=== PATIENT | female | born 1955 | race Caucasian/White ===

== ENCOUNTER → 2021-02-04 16:06 | Outpatient (CLI) | payer MEDICARE, OTHER, SELFPAY ==
--- NOTE | ~2021-02-04 | MM_ITS ---
EXAMINATION: MM screening mata BI w ed HISTORY: Screening TECHNIQUE: Craniocaudal and mediolateral oblique 3-D tomosynthesis images were obtained and synthetic 2-D images were generated. CAD analysis was submitted and interpreted. COMPARISON: Comparison to multiple prior studies sequentially, with oldest reviewed study dated 06/10. BREAST PARENCHYMAL COMPOSITION: Breast composed of scattered areas of fibroglandular density. FINDINGS: There are new asymmetries in the lower inner quadrant of the right breast. The left breast is stable without evidence for malignancy. IMPRESSION: 1. New right breast asymmetries. 2. Additional mammographic views and possible breast ultrasound are recommended. BI-RADS Category 0: Incomplete: Needs additional imaging evaluation. Reviewed, dictated and finalized at location A. IMPRESSION: 1. New right breast asymmetries. 2. Additional mammographic views and possible breast ultrasound are recommended . BI-RADS Category 0: Incomplete: Needs additional imaging evaluation.
== END ==
PROVIDERS: Visit Provider Internal Medicine
DX: Z12.31 Encounter for screening mammogram for malignant neoplasm of breast (principal); R92.8 Other abnormal and inconclusive findings on diagnostic imaging of breast
CPT/HCPCS: 77063; 77067

== ENCOUNTER → 2021-03-05 09:53 | Outpatient (CLI) | payer MEDICARE, OTHER, SELFPAY ==
--- NOTE | ~2021-03-05 | MMUS_ITS ---
EXAMINATION: MM diagnostic mammo unilat RT, US breast RT complete HISTORY: New right breast mammographic asymmetries reported on 02/04/2021 screening mammogram TECHNIQUE: Additional 3-D tomosynthesis images of the right breast were performed and synthetic 2-D i mages were generated. Rotated lateral craniocaudal view of right breast. CAD analysis was submitted a nd interpreted. High resolution complete right breast ultrasound was performed. COMPARISON: 02/04/2021 bilateral digital screening mammogram FINDINGS: MAMMOGRAPHIC FINDINGS: 4.5 mm irregular opacity in the upper outer right breast (ML Tomosynthesis image 14/56) Approximately 8.5 mm irregular mass is noted in the inner mid right breast (craniocaudal Tomosynthesi s image 23/51. Probable postsurgical scarring in the posterior upper outer right breast. ULTRASOUND: 4:00 3 cm from nipple: 3 x 3.8 mm irregular hypoechoic lesion with shadowing; this is suspicious, ult rasound-guided biopsy is recommended. 9:00 7 cm from nipple: 3.1 x 3.8 mm antiparallel irregular hypoechoic solid lesion; ultrasound-guided biopsy is recommended 10:00 6 cm from nipple: Irregular and typed parallel hypoechoic 4 x 5.5 x 4.5 mm mass with posterior shadowing; ultrasound-guided biopsy is recommended. IMPRESSION: 1. Multiple suspicious right breast masses 2. Ultrasound-guided biopsy of 4:00, 9:00 and 10:00 lesions is recommended. BI-RADS category 4, suspicious findings. Dr. Ring telephoned the report and ultrasound guided biopsy recommendations on 03/05/2021 at [address] Platt. Reviewed, dictated and finalized at location A. IMPRESSION: 1. Multiple suspicious right breast masses 2. Ultrasound-guided biopsy of 4:00, 9:00 and 10:00 lesions is recommended. BI-RADS category 4, suspicious findings. Dr. Ring telephoned the report and ultrasound guided biopsy recommendations on 03/05/2021 [place] [address] Platt.
== END ==
PROVIDERS: PCP Internal Medicine; Visit Provider Internal Medicine
DX: R92.8 Other abnormal and inconclusive findings on diagnostic imaging of breast (principal)
CPT/HCPCS: 76641; 77065

== ENCOUNTER → 2022-04-30 14:49 | Outpatient (CLI) | payer MEDICARE, OTHER, SELFPAY ==
--- NOTE | ~2022-04-30 | DEXA_ITS ---
Bone Density Report Name: MANJIT MATTA Age: 66 Sex: Female Ethnicity: White Date of : 1955 Indication: postmenopausal; screening for osteoporosis; height loss; cancer; hysterectomy; Referring Provider: Mimi Cabrera Study: Bone densitometry was performed. Exam Date: April 30, 2022 Accession number: [id number] Bone Density: Region BMD T-score Z-score Classification AP Spine (L1-L4) 0.910 -1.2 0.7 Osteopenia Femoral Neck (Left) 0.690 -1.4 0.2 Osteopenia Total Hip (Left) 0.862 -0.7 0.7 Normal Femoral Neck (Right) 0.718 -1.2 0.5 Osteopenia Total Hip (Right) 0.889 -0.4 0.9 Normal Total Hip Mean 0.876 -0.6 0.8 Normal World Health Organization criteria for BMD impression classify patients as: Normal (T-score at or above -1.0), Osteopenia (T-score between -1.0 and -2.5), or Osteoporosis (T-score at or below -2.5). 10-year Fracture Risk(1): Major Osteoporotic Fracture 9.3% Hip Fracture 1.1% Reported Risk Factors: [place] (), Neck BMD=0.690, BMI=27.1 (1) FRAX(R) Version 3.08. Fracture probability calculated for an untreated patient. Fracture probability may be lower if the patient has received treatment. Previous Exams: Region Exam Age BMD T-score BMD Change BMD Change Date g/cm2 vs Baseline vs Previous AP Spine(L1-L4) 04/30/2022 66 0.910 -1.2 -0.035* -0.027* 01/01/2011 55 0.937 -1.0 -0.008 -0.008 07/27/2005 49 0.945 -0.9 Total Hip(Left) 04/30/2022 66 0.862 -0.7 -0.091* 0.006 01/01/2011 55 0.856 -0.7 -0.098* -0.098* 07/27/2005 49 0.953 0.1 Total Hip(Right) 04/30/2022 66 0.889 -0.4 -0.102* 0.021 01/01/2011 55 0.868 -0.6 -0.123* -0.123* 07/27/2005 49 0.991 0.4 *Denotes significance at 95% confidence level, LSC for AP Spine = 0.022 g/cm2, LSC for Total Hip = 0.027 g/cm2 Clinical Information Provided by Patient: Has the following medical conditions: Cancer, Hysterectomy Patient maximum height was 65.5 Menopause Age: 46 No regular weight bearing exercise Drinks caffeinated beverages Onset of menses at age 15 Number of children 3 Impression: The patient has low bone mass, based on the Left Femoral Neck T-score. The patient has an estimated ten-year risk of hip fracture of 1.1% and an estimated ten-year risk of major fracture of 9.3%, based on the WHO FRAX algorithm. The BMD for
== END ==
PROVIDERS: PCP Internal Medicine; Visit Provider Obstetrics & Gynecology
DX: Z78.0 Asymptomatic menopausal state (principal); M85.88 Other specified disorders of bone density and structure, other site; M85.852 Other specified disorders of bone density and structure, left thigh; M85.851 Other specified disorders of bone density and structure, right thigh
CPT/HCPCS: 77080

== ENCOUNTER 2024-11-29 13:17 | Outpatient (CLI) | payer MEDICARE, SELFPAY ==
--- NOTE | ~2024-11-29 | DEXA_ITS ---
Bone Density Report Name: MANJIT MATTA Age: 69 Sex: Female Ethnicity: White Date of : 1955 Indication: postmenopausal; screening for osteoporosis; height loss; hysterectomy; Referring Provider: MANID, MARTY Grya Study: Bone densitometry was performed. Exam Date: November 29, 2024 Accession number: [id number] Bone Density: Region BMD T-score Z-score Classification AP Spine(L1-L4) 0.880 -1.5 0.6 Osteopenia Femoral Neck (Left) 0.680 -1.5 0.3 Osteopenia Total Hip (Left) 0.812 -1.1 0.5 Osteopenia Femoral Neck (Right) 0.661 -1.7 0.1 Osteopenia Total Hip (Right) 0.795 -1.2 0.3 Osteopenia Total Hip Mean 0.803 -1.2 0.4 Osteopenia World Health Organization criteria for BMD impression classify patients as: Normal (T-score at or above -1.0), Osteopenia (T-score between -1.0 and -2.5), or Osteoporosis (T-score at or below -2.5). 10-year Fracture Risk(1): Major Osteoporotic Fracture 9.8% Hip Fracture 1.6% Reported Risk Factors: [place] (), Neck BMD=0.661, BMI=23.0 (1) FRAX(R) Version 3.08. Fracture probability calculated for an untreated patient. Fracture probability may be lower if the patient has received treatment. Clinical Information Provided by Patient: Has the following medical conditions: Hysterectomy Patient maximum height was 65.5 Menopause Age: 46 No regular weight bearing exercise Drinks caffeinated beverages Onset of menses at age 15 Number of children 3 Impression: The patient has low bone mass, based on the Right Femoral Neck T-score. The patient has an estimated ten-year risk of hip fracture of 1.6% and an estimated ten-year risk of major fracture of 9.8%, based on the WHO FRAX algorithm. Discussion: BONE DENSITY IS LOW AT ONE OR MORE SKELETAL SITES. This patient's lowest T-score is low at one or more skeletal sites. It meets the World Health Organization's (WHO) criteria for ?low bone mass? (T-score between -1.0 and -2.5). The patient's 10-year risk of fracture as calculated by FRAX is less than the threshold where pharmacological therapy is recommended by the National Osteoporosis Foundation (NOF). However, all treatment decisions require clinical judgment and consideration of individual patient factors, including patient preferences, comorbidities, previous drug use, risk factors not captured in the FRAX model (e.g., frailty, falls, vitamin D deficiency, increased bone turnover, interval significant decline in bone density) and possible under or overestimation of fracture risk by FRAX. The patient should follow a healthful lifestyle (good nutrition with adequate calcium and vitamin D, and appropriate weight-bearing exercise). Follow-Up: Consider repeating this study in 2 to 3 years to reassess this patient's status, or sooner if there is some new clinical indication. Reported by: HALI on 11/29/2024 1:49:00 PM. Reviewed, dictated and finalized at location A.
--- OUTSIDE RECORDS SUMMARY | 2024-11-29 14:58 | XMS_ITS | Referral Summary ---
Author Organization [facility] Medical Office Building A Address [address] [place] [address] Care Team Providers Care Pigment And Lacquer Mixer Name Role Phone Phill Platt MD Primary Care Provider Mimi Cabrera MD Unavailable [phone] Kirsty Mo TAR DISTRIBUTOR OPERATOR Unavailable [phone] Malgorzata Smiley TAR DISTRIBUTOR OPERATOR Unavailable [phone] Encounters Date Type Department Care Team Description 11/28/2024 Telephone [facility] Gastroenterology at [address] [place] [address] Fara Fitzpatrick Colonoscopy Reschedule from Last 3 Months Allergies Active Allergy Reactions Criticality Noted Date Comments Penicillins Hives,Rash Reaction: Hives, , Reaction: Hives, Skin Rash, Medications blood-glucose meter kit 1 each daily Use to check blood glucose daily Dx E11.69 1 kit 2 Active blood glucose diagnostic (glucose blood) strip USE TO TEST BLOOD SUGAR ONCE DAILY OR DIRECTED 100 each 11 2 Active [facility]ets [facility] Check blood sugar once daily or as directed 100 each [address] (PROTONIX) 40 mg EC tablet Take 1 tablet by mouth once daily 100 tablet 1 4 Active atenoloL (TENORMIN) 50 mg tablet Take 1 tablet by mouth once daily 100 tablet 1 4 Active dapagliflozin propanediol (FARXIGA) 10 mg tablet Take 1 tablet (10 mg total) by mouth daily Note higher dose 90 tablet 3 4 Active venlafaxine XR (EFFEXOR-XR) 150 mg 24 hr capsule TAKE 1 CAPSULE BY MOUTH ONCE DAILY WITH FOOD 100 capsule 1 4 Active simvastatin (ZOCOR) 10 mg tablet Take 1 tablet by mouth nightly 90 tablet 1 4 Active metFORMIN XR (GLUCOPHAGE XR) 500 mg 24 hr tablet TAKE 2 TABLETS BY MOUTH ONCE DAILY WITH BREAKFAST 180 tablet 1 4 Active Active Problems Problem Noted Date Diagnosed Date Screening for colon cancer 11/28/2024 Encounter for screening colonoscopy 07/16/2023 Recurrent major depression 04/28/2023 Abnormal mammography 03/22/2021 Popliteal cyst, right 10/14/2020 Type 2 diabetes mellitus with hyperlipidemia 03/2021 Assessment & Plan (01/28/2022 12:14 PM CDT): The patient was counseled on a heart-healthy, diabetic-friendly diet, as well as life-style modification. Education provided on the diagnosis and risks of the disease. We will continue to monitor routine labs. Additionally, She was counseled on routine diabetic eye exams, foot exams, and other preventive care. History of COVID-19 10/14/2020 HX: breast cancer 10/12/2019 BMI 26.0-26.9,adult 06/15/2019 Tinnitus, bilateral 06/08/2017 Medicare annual wellness visit, subsequent 04/05 Multiple-type hyperlipidemia 12/23/2013 Overview (11/12/2016): MIXED HYPERLIPIDEMIA Hypertension associated with diabetes 12/23/2013 Overview (11/13/2016): BENIGN HYPERTENSION Assessment & Plan (01/28/2022 12:17 PM CDT): Recommend DASH diet, heart-healthy lifestyle, exercise. Discussed the risks of hypertension. Assessment & Plan (11/07/2020 8:27 AM CDT): Recommend DASH diet, heart healthy lifestyle, exercise. Discussed the risks of hypertension. 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 Socrates Yost prescribed for nocturnal cough suppression, recommending Mucinex increase fluids, and OTC therapies to assist with sx also recommended. S/Es of medication discussed, encouraged to call back in office with persistent sx. Chronic pain of left knee 06/08/2017 Breast neoplasm 12/23/2013 10/12/2019 Overview (11/12/2016): BREAST NEOPLASM NOS Impaired glucose tolerance 01/14/2012 0 10/14/2020 Overview (11/12/2016): Glucose intolerance (pre-diabetes) Immunizations Immunization Administration Dates Next Due Influenza, Quadrivalent, Gloria l Culture-based MDCK, Preservative Free, Antibiotic Free, Intramuscular 08/06/2016 Influenza, Quadrivalent, Hig h Dose, Preservative Free, Intrr 04/28/2023,08/21/2021,05/02/2020 Influenza, Quadrivalent, Spl it, Preservative Free, Intramuscular 06/05/2019,06/02/2018,06/08/2017,08/07 Influenza, Split 05/16/2010 Influenza, Trivalent, High D ose, Split, Preservative Free, Intramuscular 05/23/2024 Influenza, Trivalent, IM (MDV) 08/19/2015,2013,08/18/2012 Influenza, Trivalent, Split, Preservative Free, Intradermal 08/20/2015 Influenza, Unspecified 10/30/2022(Deferred: Valencia ent Refused) Moderna SARS-CoV-2 Monovalen t Vaccination (12+ YRS) 11/27/2021,10/19/2020,09/21/2020 Pneumococcal Conjugate PCV 13 10/12/2019 Pneumococcal Polysaccharide PPV23 10/15/2021 Tdap 10/15/2015 Social History Tobacco Use Types Packs/Day Years Used Date Smoking Tobacco: Never Smokeless Tobacco: Never Tobacco Cessation:Counseling Given: Not Answered Alcohol Use Standard Drinks/Week Comments No 0 (1 standard drink = 0.6 oz pur e alcohol) AUDIT-C Answer Date Recorded Q1: How often do you have a drink containing alc ohol? Never 03/20/2021 Average Number of Drinks Not on file 021 Frequency of Binge Drinking Not on file 03/09 PHQ-2 Answer Date Recorded PHQ-2 Total Score (If total score is 3 or more points, staff should administer the PHQ-9) 0 05/23/2024 Comments No Sex and Gender Information Value Date Recorded Sex Assigned at Not on file Legal Sex Female 2:51 PM AUTOMOTIVE [employer] Gender Identity Not on file Sexual Orientation Not on file Last Filed Vital Signs Vital Sign Reading Time Taken Comments Blood Pressure 110/60 05/23/2024 10:54 AM CDT Pulse 66 05/23/2024 10:54 AM CDT Temperature 36.4 C (97.5 F) 05/23/2024 10:54 AM CDT Respiratory Rate 16 05/23/2024 10:54 AM CDT Oxygen Saturation 99% 05/23/2024 10:54 AM CDT Inhaled Oxygen Concentration - - Weight 60.8 kg (134 lb) 05/23/2024 10:54 AM CDT Height 165.1 cm (5' 5 ) 05/23/2024 10:54 AM CDT Body Mass Index 22.3 05/23/2024 10:54 AM CDT Plan of Treatment Upcoming Encounters Date Type Department Care Team (Late st Contact Info) Description 07/18/2025 10:00 AM AUT[employer]OTIVE [employer]OP FOREMAN Hospital Encounter [address] [address] James Ley DO [address] [facility] [place] [address] 07/18/2025 10:00 AM AUTOMOTIVE [employer]OP [employer]EMAN - 07/18/2025 10:30 AM AUT[employer]IVE [employer]EM[employer] Surgery [address] [address] James Ley DO [address] [facility] [facility] [place] [address] COLONOSCOPY Scheduled Procedures Name Priority Associated Diagnoses Date/Ti me COLONOSCOPY Screening for colon cancer 07/18/2025 10:00 AM AUTOMOTIVE [employer]EM[employer] Medical Devices Implanted Type Area Grazing Examiner Device Identifier Shelf Expiration Date Model / Serial / Lot SkyBridge Marker Image Hydromark Plus T5 Titanium 15ga Radiological Implant Sterile [id number]-[id number] - [id number] Implanted:Qty: 1 on 05/22/2024 at [facility] [employer] [id number] -[id number] / / [id number] [place] [employer] Marker Breast Ring Shape Radiopaque Nitinol Ultracor Twirl [id number] - [id number] Implanted:Qty: 1 on 05/22/2024 at [facility] [employer] [facility] [id number] / / Procedures Procedure Name Priority Date/Time Associated Diagnosis Comments LIPID PANEL Routine 11/20/2024 6:52 AM CDT Hypertension associated with diabetes (HCC) HEMOGLOBIN A1C Routine 11/20/2024 6:52 AM CDT Hypertension associated with diabetes (HCC) COMPREHENSIVE METABOLIC PANEL Routine 11/20/2024 6:52 AM CDT Hypertension associated with diabetes (HCC) ALBUMIN CREATININE RATIO, URINE Routine 11/20/2024 6:52 AM CDT Hypertension associated with diabetes (HCC) DIAGNOSTIC MAMMOGRAM BILATERAL W KHANG Schedule Routine, Read Routine (OP Routine) 05/15/2024 3:09 PM CDT Mass of right breast, unspecified quadrant DIABETIC EYE EXAM Routine 11/25/2023 DEXA AXIAL SKELETON BONE DENSITY 1 OR MORE SITES Schedule Routine, Read Routine (OP Routine) 04/30/2022 DIABETES FOOT EXAM Routine 10/12/2019 HEPATITIS C AB W/REFL TO HCV RNA, QN, PCR (REFL) Routine 09/27/2017 9:24 AM AUTOMOTIVE SHOP FOREM[employer] Need for hepatitis C screening test COLONOSCOPY Routine 03/02/2013 from Last 3 Months or Most Recently Relevant to Health Maintenance Results * Albumin Creatinine Ratio, Urine (11/20/2024 6:52 AM CDT) Creatinine, ur 90 20 - 275 mg/dL [facility] Microalbumin, ur 0.3 See Note: mg/dL [facility] Comment: Reference Range: Reference Range Not established Microalbumin/creat ratio 3 <30 mg/g creat [facility] Comment: The ADA defines abnormalities in albumin excretion as follows: Albuminuria Category Result (mg/g creatinine) Normal to Mildly increased <30 Moderately increased 30-299 Severely increased > OR = 300 The ADA recommends that at least two of three specimens collected within a 3-6 month period be abnormal before considering a patient to be within a diagnostic category. Urine 11/20/2024 6:52 AM CDT 11/20/2024 6:53 AM CDT Narrative [facility] - 11/21/2024 7:15 AM CDT FASTING:YES FASTING: YES us Phill Platt MD LAB URINE ORDERABLES Fi nal Result [facility] [address] [place] [address] * (ABNORMAL) Hemoglobin A1c (11/20/2024 6:52 AM CDT) Hgb A1C 6.8(H) <5.7 % of total Hgb [facility] Comment: For someone without known diabetes, a hemoglobin A1c value of 6.5% or greater indicates that they may have diabetes and this should be confirmed with a follow-up test. For someone with known diabetes, a value <7% indicates that their diabetes is well controlled and a value greater than or equal to 7% indicates suboptimal control. A1c targets should be individualized based on duration of diabetes, age, comorbid conditions, and other considerations. Currently, no consensus exists regarding use of hemoglobin A1c for diagnosis of diabetes for children. Blood 11/20/2024 6:52 AM CDT 11/20/2024 6:53 AM CDT Narrative [facility] - 11/21/2024 7:15 AM CDT FASTING:YES FASTING: YES us Phill Platt MD LAB BLOOD ORDERABLES Fi nal Result [facility] [address] [place] [address] * Lipid panel (11/20/2024 6:52 AM CDT) Cholesterol 173 <200 mg/dL [facility] HDL 54 > OR = 50 mg/dL [facility] Triglycerides 107 <150 mg/dL [facility] LDL 99 mg/dL (calc) [facility] Comment: Reference range: <100 Desirable range <100 mg/dL for primary prevention; <70 mg/dL for patients with CHD or diabetic patients with > or = 2 CHD risk factors. LDL-C is now calculated using the Sandeep calculation, which is a validated novel method providing better accuracy than the Friedewald equation in the estimation of LDL-C. Suresh AVALOS et al. BHUMIKA. 2013;310(19): 3021-1475 (http://education.Expa.[place]s/faq/EVV456) Chol/HDL ratio 3.2 <5.0 (calc) [facility] Non-HDL, (LDL+VLDL) 119 <130 mg/dL (calc) [facility] Comment: For patients with diabetes plus 1 major ASCVD risk factor, treating to a non-HDL-C goal of <100 mg/dL (LDL-C of <70 mg/dL) is considered a therapeutic option. Blood 11/20/2024 6:52 AM CDT 11/20/2024 6:53 AM CDT Narrative [facility] - 11/21/2024 7:15 AM CDT FASTING:YES FASTING: YES us Phill Platt MD LAB BLOOD ORDERABLES Fi nal Result [facility] [address] [place] [id number] * (ABNORMAL) Comprehensive metabolic panel (11/20/2024 6:52 AM CDT) Glucose 163(H) 65 - 99 mg/dL [facility] Comment: Fasting reference interval For someone without known diabetes, a glucose value >125 mg/dL indicates that they may have diabetes and this should be confirmed with a follow-up test. BUN 25 7 - 25 mg/dL [facility] Creatinine 0.66 0.60 - 1.00 mg/dL [facility] eGFR 94 > OR = 60 mL/min/1.7 3m2 [facility] BUN/creat ratio SEE NOTE: 6 (calc) [facility] Comment: Not Reported: BUN and Creatinine are within reference range. Sodium 140 135 - 146 mmol/L [facility] Potassium, pl 4.4 3.5 - 5.3 mmol/L [facility] Chloride 106 98 - 110 mmol/L [facility] CO2 28 20 - 32 mmol/L [facility] Calcium 9.3 8.6 - 10.4 mg/dL [facility] Protein, sr 6.5 6.1 - 8.1 g/dL [facility] Albumin 4.2 3.6 - 5.1 g/dL [facility] GLOBULIN 2.3 1.9 - 3.7 g/dL (calc) [facility] Alb/glob ratio 1.8 1.0 - 2.5 (calc) [facility] Bilirubin, total 0.5 0.2 - 1.2 mg/dL [facility] Alk phos 48 37 - 153 U/L [facility] AST 15 10 - 35 U/L [facility] ALT (SGPT) 11 6 - 29 U/L [facility] Blood 11/20/2024 6:52 AM CDT 11/20/2024 6:53 AM CDT Narrative [facility] - 11/21/2024 7:15 AM CDT FASTING:YES FASTING: YES us Phill Platt MD LAB BLOOD ORDERABLES Fi nal Result [facility] [address] [place] [address] * Diagnostic Mammogram Bilateral W Khang (05/15/2024 3:09 PM CDT) Anatomical Region Laterality Modality Breast Bilateral Mammography 05/15/2024 4:16 PM CDT Impressions 05/15/2024 4:16 PM CDT 1. Irregular 1.9 cm hypoechoic mass in the right breast at the 1:30 position 5 cm from the nipple correlates with the area of palpable concern. Ultrasound-guided biopsy is recommended. 2. Irregular 1.3 cm mass in the right breast at the 12:00 location 4 cm from the nipple, likely correlating with the new mass noted on mammogram in the upper central right breast near the surgical scar markers. Ultrasound-guided biopsy is recommended. The method of initial detection of finding was patient-reported clinical symptom (Pat). OVERALL FINAL ASSESSMENT: SUSPICIOUS. BI-RADS Category 4B: Moderate suspicion for malignancy. RECOMMENDATION: Ultrasound-guided biopsy of the [address] Knutson discussed the above findings and recommendations with the patient. She has been scheduled to return to the [facility] for biopsy on 05/22/2024 at 10:30 AM. This facility will contact the referring clinician's office for an order. Electronically signed by: Alecia Black M.D. Narrative 05/15/2024 4:16 PM CDT EXAMINATION: BILATERAL DIGITAL DIAGNOSTIC MAMMOGRAM INCLUDING CAD AND BILATERAL DIGITAL BREAST TOMOSYNTHESIS; RIGHT BREAST SONOGRAM HISTORY: 68-year-old woman with history of right breast conservation therapy in 2006 who presents for palpable right breast abnormality. Of note the patient had 2 irregular masses noted within the right breast in 2020 which underwent ultrasound-guided biopsy and demonstrated fat necrosis. COMPARISON: 02/17/2023 and priors dating back to 2013 TECHNIQUE: Full field digital mammographic views of BOTH breasts were performed, including computer aided detection (CAD) and BILATERAL digital breast tomosynthesis (DBT). Directed ultrasound evaluation of the RIGHT breast was performed. BREAST PARENCHYMAL COMPOSITION: There are scattered areas of fibroglandular density. MAMMOGRAM FINDINGS: Redemonstrated postsurgical changes are noted within the right breast. There is a focal asymmetry with internal ribbon-shaped clip noted within the scar within the slightly inner inferior right breast. Along the upper central right breast scar, there is a interval irregular 1.3 cm mass with indistinct margins. Underlying the palpable abnormality in the central right breast at posterior depth there is an irregular 1.2 cm equal density mass. There is stable focal asymmetry with tissue marker clip is noted within the right axilla. There is no new grouped calcifications noted within the right breast. There is no new suspicious mammographic abnormality noted within the left breast. The mammographic appearance of the left breast appears stable with comparisons. SONOGRAM FINDINGS: Targeted sonographic images in the right breast at the area of palpable concern at the 1:30 location 5 cm from the nipple demonstrates an irregular hypoechoic mass with hyperechoic rim measuring up to 1.9 x 0.8 x 1.6 cm with increased surrounding vascularity and posterior acoustic shadowing. In the right breast at the 12:00 location 4 cm from the nipple, there is an irregular 1.3 x 0.7 x 1.2 cm hypoechoic mass with surrounding echogenic rim and surrounding increased vascularity. These 2 masses measure 2.9 cm from each other. Targeted sonographic images in the right axilla demonstrate multiple benign-appearing lymph nodes. Procedure Note Alecia Black MD - 05/15/2024 EXAMINATION: BILATERAL DIGITAL DIAGNOSTIC MAMMOGRAM INCLUDING CAD AND BILATERAL DIGITAL BREAST TOMOSYNTHESIS; RIGHT BREAST SONOGRAM HISTORY: 68-year-old woman with history of right breast conservation therapy in 2006 who presents for palpable right breast abnormality. Of note the patient had 2 irregular masses noted within the right breast in 2020 which underwent ultrasound-guided biopsy and demonstrated fat necrosis. COMPARISON: 02/17/2023 and priors dating back to 2013 TECHNIQUE: Full field digital mammographic views of BOTH breasts were performed, including computer aided detection (CAD) and BILATERAL digital breast tomosynthesis (DBT). Directed ultrasound evaluation of the RIGHT breast was performed. BREAST PARENCHYMAL COMPOSITION: There are scattered areas of fibroglandular density. MAMMOGRAM FINDINGS: Redemonstrated postsurgical changes are noted within the right breast. There is a focal asymmetry with internal ribbon-shaped clip noted within the scar within the slightly inner inferior right breast. Along the upper central right breast scar, there is a interval irregular 1.3 cm mass with indistinct margins. Underlying the palpable abnormality in the central right breast at posterior depth there is an irregular 1.2 cm equal density mass. There is stable focal asymmetry with tissue marker clip is noted within the right axilla. There is no new grouped calcifications noted within the right breast. There is no new suspicious mammographic abnormality noted within the left breast. The mammographic appearance of the left breast appears stable with comparisons. SONOGRAM FINDINGS: Targeted sonographic images in the right breast at the area of palpable concern at the 1:30 location 5 cm from the nipple demonstrates an irregular hypoechoic mass with hyperechoic rim measuring up to 1.9 x 0.8 x 1.6 cm with increased surrounding vascularity and posterior acoustic shadowing. In the right breast at the 12:00 location 4 cm from the nipple, there is an irregular 1.3 x 0.7 x 1.2 cm hypoechoic mass with surrounding echogenic rim and surrounding increased vascularity. These 2 masses measure 2.9 cm from each other. Targeted sonographic images in the right axilla demonstrate multiple benign-appearing lymph nodes. IMPRESSION: 1. Irregular 1.9 cm hypoechoic mass in the right breast at the 1:30 position 5 cm from the nipple correlates with the area of palpable concern. Ultrasound-guided biopsy is recommended. 2. Irregular 1.3 cm mass in the right breast at the 12:00 location 4 cm from the nipple, likely correlating with the new mass noted on mammogram in the upper central right breast near the surgical scar markers. Ultrasound-guided biopsy is recommended. The method of initial detection of finding was patient-reported clinical symptom (Pat). OVERALL FINAL ASSESSMENT: SUSPICIOUS. BI-RADS Category 4B: Moderate suspicion for malignancy. RECOMMENDATION: Ultrasound-guided biopsy of the [address] Knutson discussed the above findings and recommendations with the patient. She has been scheduled to return to the [facility] for biopsy on 05/22/2024 at 10:30 AM. This facility will contact the referring clinician's office for an order. Electronically signed by: Alecia Black M.D. Malgorzata Hailey Lamay TAR DISTRIBUTOR OPERATOR IMG MAMMO PROCEDURES Fi nal Result * Diabetic Eye Exam (11/25/2023) Generic External Data Provider HEALTH MAINTENANC E Final Result * Dexa Axial Skeleton Bone Density 1 or 2 Site (04/30/2022) Anatomical Region Laterality Modality Body N/A Radiographic Crista ging Historical Provider IMG DXA PROCEDURES Final Result * DIABETES FOOT EXAM (10/12/2019) Diabetic Foot Exam Normal Historical Provider HEALTH MAINTENANCE Final Result * HEPATITIS C AB W/REFL TO HCV RNA, QN, PCR (REFL) (09/27/2017 9:24 AM AUT[employer]OTIVE [employer]) Hep C Ab NON-REACTI VE NON-REACTI VE [facility] - [place] SIGNAL TO CUT-OFF 0.02 <1.00 [facility] Blood specimen (specimen) 09/27/2017 9:24 AM [employer]IVE [employer]EM[employer] 09/28/2017 5:39 AM [employer] Narrative Resulting Agency Comment Performing Organization Information: Site ID: [place] Name: [email or web address] Address: [address] [facility] [place] [address] Director: Mac Gipson D.O., MPH Phill Platt MD LAB BLOOD ORDERABLES Fi nal Result [facility] [place] * COLONOSCOPY (03/02/2013) Colonoscopy Normal Historical Provider HEALTH MAINTENANCE Final Result from Last 3 Months or Most Recently Relevant to Health Maintenance [place] [address] [employer] MEDICARE [place]OLD [place] [address] Care Teams Pigment And Lacquer Mixer Relationship Specialty Start Date End Date Phill Platt MD PCP - General 01/16/13 Mimi Cabrera MD Referring Physician Obstetrics and Gynecology 03/07/21 Kirsty Mo NP Nurse Practitioner Nurse Practitioner 03/20/21 Malgorzata Smiley NP [address] [place] [address] Obstetrics and Gynecology 05/02/24
--- OUTSIDE RECORDS SUMMARY | 2024-11-29 14:58 | XMS_ITS | Data Portability ---
Author Organization [facility] Address [address] [place] [address] [place] [address] Care Team Providers Care Phy Therapist Name Role Phone MAGDA ROSEN Primary Care Provider Assessment Encounter Date Assessment Date Assessment LastModified by Organization Details LastModified Time 03/07/2021 03/07/2021 Encouraged yearly WWE referral for [facility] breast surgery. support given Not available 03/07/2021 12:46:41 01/07/2022 01/07/2022 healthy female exam/menopause patient declines std testing pap- none further hyst mammogram per [facility], encouraged colonoscopy due in 2025 dexa ordered and encouraged Encouraged weight bearing exercise and 1500mg daily of Calcium with Vitamin D FU 1 year or prdeclines Not available 01/12/2022 14:02:22 06/26/2024 06/26/2024 Annual gynecological exam performed. Patient will come back in a year unless there are new symptoms. [email or web address] Not available 06/26/2024 12:15:03 Plan of Treatment Reminders Order Date Submit Date Provider Last Modified By Organization Details Last Modified Time Details Appointments None recorded. Lab None recorded. Referral None recorded. Procedures None recorded. Surgeries None recorded. Imaging DEXA, axial skeleton + vertebral fracture assessment 2023 024 [facility], [address], [place], [address], 04:16:55 Medication Orders None recorded. Patient TargetsNo targets recorded. Patient InstructionsNo instructions recorded. Reason for Referral None Reported. Results Created Date Observation Date Name Description Value Unit Range Abnormal Flag Note LastModifiedBy Organization Detail LastModifiedTime 02/06/20 21 02/04/2021 MAMMO , scree fide, bilat eral No observ ation record ed. aruehrup [facility] [address], [place], [address], 02/05/2021 19:31:17 03/05/20 21 03/05/2021 MAMMO , diagn ostic , unila teral No observ ation record ed. layran [facility] [address], [place], [address], 03/06/2021 13:25:53 05/01/20 22 04/30/2022 DEXA, axial skele ton + verte bral fract ure asses sment No observ ation record ed. smcaley [facility] [address], [place], [address], 05/01/2022 14:51:45 05/15/20 24 05/15/2024 MAMMO , scree fide, bilat eral No observ ation record ed. [address], [address], 05/16/2024 18:00:17 05/15/20 24 05/15/2024 , mayito malcolma teral No observ ation record ed. [address], [address], 05/30/2024 04:03:30 05/22/20 24 05/22/2024 biops y, landry sanford, w/ ultra sound damien nce (PROC ) No observ ation record ed. [address], [address], 05/23/2024 09:03:48 05/22/20 24 05/22/2024 biops y, breas t, w/ ultra sound damien nce (PROC ) No observ ation record ed. [address] [facility] [address], [place], [address], 05/23/2024 09:03:48 05/25/2005/22/2024 biops y, breas t, w/ ultra sound damien nce (PROC ) No observ ation record ed. [address] [facility] [address] [facility], [place], [address], 05/26/2024 09:12:26 05/25/2005/22/2024 biops y, breas t, w/ ultra sound damien nce (PROC ) No observ ation record ed. [address] [facility] [address], [place], [address], 05/26/2024 09:12:27 Result Notes None recorded. Problems Name Problem SNOMED Code Status Onset Date Resolution Date Notes Provider Name and Address Organization Details Recorded Time Screenin g for malignan t neoplasm of rectum Completed 201103/07/2021 Screenin g for malignan t neoplasm s of the rectum;R ecorded Elsewher e: No Locat ion: [facility] S ource: EHR Air Technician rashaun: Rodolfo Munson ce ID: 0001 Dangelo lable Time: 10:30:00 AM Mimi Cabrera MD [address], [place], [address], [facility] 12:25:55 Adult health examinat ion Completed 201103/07/2021 Routine Medical Exam;Rec orded Elsewher e: No Locat ion: [facility] S ource: EHR Air Technician rashaun: N Practi ce ID: 0001 Dangelo lable Time: 10:30:00 AM Mimi Cabrera MD [address], [place], [address], [facility] 12:25:44 Screenin g for malignan t neoplasm of cervix Completed 201103/07/2021 Screenin g for malignan t neoplasm s of the cervix;R ecorded Elsewher e: No Locat ion: [facility] S ource: EHR Air Technician rashaun: N Practi ce ID: 0001 Dangelo lable Time: 10:30:00 AM Mimi Cabrera MD [address], [place], [address], [facility] 1 12:25:50 Speciali zed medical examinat ion Completed 201103/07/2021 Gynecolo gical Examinat ion;Harsh rded Elsewher e: No Locat ion: [facility] S ource: EHR Air Technician rashaun: N Sheldonti ce ID: 0001 Dangelo lable Time: 10:30:00 AM Mimi Cabrera MD [address], [place], [address], [facility] 1 12:26:02 Finding of sensatio n of breast Completed 201503/07/2021 Mastodyn ia;Recor ded Elsewher e: No Locat ion: [facility] S ource: EHR Air Technician rashaun: N Practi ce ID: 0001 Dangelo lable Time: 03:00:00 PM Mimi Cabrera MD [address], [place], [address], [facility] [address] 12:25:[address] Concept Completed 201403/07/2021 Encntr for general adult medical exam w/o abnormal findings ;Recorde d Elsewher e: No Locat ion: [facility] S ource: EHR Air Technician rashaun: N Practi ce ID: 0001 Dangelo lable Time: 04:00:00 PM Mimi Cabrera MD [address], [place], [address], [facility] 1 12:25:57 Screenin g for malignan t neoplasm of colon Completed 201003/07/2021 Special screenin g for malignan t neoplasm s, colon;Pr actice ID: 0001 Mimi Cabrera MD [address], [place], [address], [facility] 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 12:26:30 Diabetes mellitus 05302723 Active 2023 Karie whitlock, [facility] 4 12:18:34 Hyperten sive disorder 83073376 Active 2023 Karie whitlock, [facility] 4 12:18:53 Problem Notes None recorded. Procedures Surgical History Date Name Laterality Status Provider Name and Address Organization Details Recorded Time 06/26/20 24 Date of Last Pap Smear completed Karie Shelby [facility] 06/26/2024 14:48:39 05/09/20 24 Breast Biopsy completed OMAYRA Garcia [address], [place], [address], [facility] 06/26/2024 12:58:27 02/05/20 21 Date of Last Mammogram completed Lilly Gandhi [facility] 01/07/2022 14:34:17 08/09/19 16 Date of Last Colonoscopy completed Lilly Gandhi [facility] 01/07/2022 14:33:07 08/09/19 07 lumpectomy of breast completed Lilly Gandhi [facility] 03/07/2021 12:32:01 08/09/19 06 laparoscopic total hysterectomy completed Mimi Cabrera MD [address], [place], [address], [place] [facility] 03/07/2021 12:36:20 Imaging Results Imaging Date Name Status LastModified by Organiz ation Details LastModified Time 02/04/2021 MAMMO, screening, bilateral completed [facility] [address], [place], [address], 02/05/2021 19:31:17 03/05/2021 MAMMO, diagnostic, unilateral completed [facility] [address], [place], [address], 03/06/2021 13:25:53 04/30/2022 DEXA, axial skeleton + vertebral fracture assessment completed [facility] [address], [place], [address], 05/01/2022 14:51:45 05/15/2024 MAMMO, screening, bilateral completed [address], [address], 05/16/2024 18:00:17 05/15/2024 US, breast, unilateral active [address], [address], 05/30/2024 04:03:30 05/22/2024 biopsy, breast, w/ ultrasound guidance (PROC) completed [address], [address], 05/23/2024 09:03:48 05/22/2024 biopsy, breast, w/ ultrasound guidance (PROC) completed [address] [facility], [place], [address], 05/23/2024 09:03:48 05/22/2024 biopsy, breast, w/ ultrasound guidance (PROC) completed [address] [facility] [place] [address] [place], [address], 05/26/2024 09:12:26 05/22/2024 biopsy, breast, w/ ultrasound guidance (PROC) completed [address] [facility], [place], [address], 05/26/2024 09:12:27 Procedure Notes None recorded. Medical Equipment None Reported. Allergies Allergen ID Allergen Name Allergen Category Reaction Reaction Severity Criticality Documentation Date Start Date Code Code System Note Provider Name and Address Organization Details Recorded Time 59956 Product containin g penicilli n (product) medicatio n Not available Not available Not available 03/07/2021 48997 8001 SNOMED [facility] 12:14:49 Medications Name Sig Start Date Stop Date Status Note LastModified by Organization Details LastModified Time venlafaxi ne ER 37.5 mg capsule,e xtended release 24 hr TAKE 1 CAPSULE BY MOUTH ONCE DAILY 06/26 completed Not Available Not Available Not Available doxycycli ne hyclate 100 mg capsule TAKE 1 CAPSULE BY MOUTH TWICE DAILY FOR 10 DAYS 06/26 completed Not Available Not Available Not Available Vitamin B-12 100 mcg tablet 03/07 completed Prescrib ed Elsewher e: Yes Loca tion: [facility] odify By: coleen Lemonso unter DateTime : 02/25/20 12 10:30:00 AM Not Available Not Available Not Available simvastat in 10 mg tablet TAKE 1 TABLET BY MOUTH NIGHTLY active Not Available Not Available No t Available atenolol 25 mg tablet take 1 tablet by oral route every day 01/07 completed Prescrib ed Elsewher e: Yes Loca tion: [facility] odify By: coleen mcallister Enco unter DateTime : 02/25/20 12 10:30:00 AM Not Available Not Available Not Available venlafaxi ne ER 150 mg capsule,e xtended release 24 hr TAKE 1 CAPSULE BY MOUTH ONCE DAILY WITH FOOD active Not Available Not Available No t Available benzonata te 100 mg capsule TAKE 2 CAPSULES BY MOUTH THREE TIMES DAILY NEEDED FOR COUGH 06/26 completed Not Available Not Available Not Available pantopraz ole 40 mg tablet,de layed release TAKE 1 TABLET BY MOUTH ONCE DAILY active Not Available Not Available No t Available simvastat in 20 mg tablet take 1 tablet by oral route every day in the evening 01/07 completed Prescrib ed Elsewher e: Yes Loca tion: [facility] odify By: coleen mcallister Enco unter DateTime : 02/25/20 12 10:30:00 AM Not Available Not Available Not Available metformin ER 500 mg tablet,ex tended release 24 hr TAKE 2 TABLETS BY MOUTH ONCE DAILY WITH BREAKFAS T active Not Available Not Available No t Available atenolol 50 mg tablet TAKE 1 TABLET BY MOUTH ONCE DAILY active Not Available Not Available No t Available Xanax 1 mg tablet take 1 tablet by oral route 3 times every day 03/07 completed Prescrib ed Elsewher e: Yes Loca tion: [facility] odify By: coleen mcallister Enco unter DateTime : 02/25/20 12 10:30:00 AM Not Available Not Available Not Available glipizide 5 mg tablet TAKE 1 TABLET BY MOUTH ONCE DAILY TO LOWER SUGAR 06/26 completed Not Available Not Available Not Available Calcio Herberth 500 mg tablet 03/07 completed Prescrib ed Elsewher e: Yes [facility] By: coleen Lemonso unter DateTime : 02/25/20 12 10:30:00 AM Not Available Not Available Not Available venlafaxi ne 01/07 completed Not Available Not Available Not Available metformin 01/07 completed Not Available Not Available Not Available pantopraz ole 01/07 completed Not Available Not Available Not Available Fish Oil 300 mg-500 mg capsule 03/07 completed Prescrib ed Elsewher e: Yes [facility] By: jlpwilbur lli Cristo[place]ac mo DateTime : 02/25/20 12 10:30:00 AM Not Available Not Available Not Available Farxiga 10 mg tablet TAKE 1 TABLET BY MOUTH ONCE DAILY active Not Available Not Available No t Available Farxiga 5 mg tablet 06/26 completed Not Available Not Available Not Available Vitals Date Recorded Body height Body mass index (BMI) Body weight Systolic blood pressure Diastolic blood pressure Provider Name and Address Organization Details Last Updated DateTime 03/07/2021 162.56 cm 27.5 kg/m2 98682.78 g 119 mm[Hg] 76 mm[Hg] [facility] 1 12:20:41 Date Recorded Body height Body mass index (BMI) Body weight Systolic blood pressure Diastolic blood pressure Provider Name and Address Organization Details Last Updated DateTime 01/07/2022 162.56 cm 27.8 kg/m2 19297.96 g 118 mm[Hg] 81 mm[Hg] [facility] 2 14:29:14 Date Recorded Body height Body mass index (BMI) Body weight Systolic blood pressure Diastolic blood pressure Provider Name and Address Organization Details Last Updated DateTime 06/26/2024 162.56 cm 23 kg/m2 21096.38 g 109 mm[Hg] 63 mm[Hg] Karie Shelby [facility] 4 12:15:28 Social History Question Answer Notes LastModified by Organizat ion Details LastModified Time Do You Have An Advance Directive? No [email or web address] Information n ot available 06/26/2024 What Is Your Level Of Alcohol Consumption? None [email or web address] Information not available 06/26/2024 Are You Blind Or Do You Have Difficulty Seeing? No Information not available 06/26/2024 What Is Your Level Of Caffeine Consumption? Moderate [email or web address] Information not available 06/26/2024 In The 14 Days Before Symptom Onset, Have You Had Close Contact With A Laboratory-lucas GILLIAM-19 While That Case Was Ill? No [email or web address] Information n ot available 06/26/2024 In The 14 Days Before Symptom Onset, Have You Had Close Contact With A Person Who Is Under Investigation For COVID-19 While That Person Was Ill? No [email or web address] Information not available 06/26/2024 Have You Been To An Area Known To Be High Risk For COVID-19? No Information not available 06/26/2024 Are You Deaf Or Do You Have Serious Difficulty Hearing? No [email or web address] Information not available 06/26/2024 What Type Of Diet Are You Following? REGULAR [email or web address] Information n ot available 06/26/2024 What Is The Highest Grade Or Level Of School You Have Completed Or The Highest Degree You Have Received? RC43951-3 [email or web address] Information not available 06/26/2024 What Is Your Occupation? Retired [email or web address] Information not available 06/26/2024 Are There Any Guns Present In Your Home? Yes [email or web address] Information not available 06/26/2024 Do You Use Protection During Sex? No [email or web address] Information not available 06/26/2024 Do You Use Your Seat Belt Or Car Seat Routinely? Yes [email or web address] Information not available 06/26/2024 Do You Have Smoke And Carbon Monoxide Detectors In Your Home? Yes [email or web address] Information not available 06/26/2024 Do You Feel Stressed (tense, Restless, Nervous, Or Anxious, Or Unable To Sleep At Night)? FC1001-7 [email or web address] Information not available 06/26/2024 Do You Use Any Illicit Or Recreational Drugs? No [email or web address] Information not available 06/26/2024 Do You Use Sunscreen Routinely? Yes [email or web address] Information not available 06/26/2024 Have You Used IV Drugs? No [email or web address] Information not available 06/26/2024 Sex: Unknown Functional Status Question Answer Note LastModified by Organization D etails LastModified Time Are you able to walk? YESWOREST [email or web address] Information not available 06/26/2024 What is your exercise level? Moderate [email or web address] Information not available 06/26/2024 Mental Status None recorded. Family History Relationship Description Onset Age of this Age Resolved Age Notes LastModified by Organization Details LastModified Time Maternal Aunt Carcinoma in situ of breast [email or web address] Not available 2020 12:28:16 Notes:Brother: Diabetes colt itus, Clotting disroder Father: Diabetes mellitus Maternal grandfather: Tuberculosis, Diabetes mellitus Maternal grandmother: Hypertension Mother: Hypertension Medical History Condition Response Allergies (Food, seasonal, environmental ) N Other N Breast Cancer Y Drug/Latex Allergies/Reactions N Blood Transfusion N Dermatologic Disorders N Lung Disease N Defects or Inherited Disease N Breast Problem N Gestational Diabetes N Hematologic disorders N Anesthesia Complications N History of STI N Deep Vein Thrombosis N Polycystic ovary syndrome N Anxiety Disorder N Autoimmune disease N Arthritis N Infertility N Polyps N Acid Reflux (GERD) N History of abnormal pap N Cancer N Stroke N Varicosities N Neurologic/Epilepsy N Endometriosis N High Cholesterol Y Headaches N Fibromyalgia N Kidney Disease N Heart Problems N Kidney or Bladder Problems N Thyroid Problems N GI Problems N Eating Disorder N Anemia N Art (IVF or FET) N Psychiatric Illness N Ovarian Cancer N Diabetes Y Pulmonary (TB, Asthma) N Hepatitis/Liver Disease N No Past Medical History N Eczema N Urinary Tract Infection N Abuse/Domestic Violence N Asthma N Trauma/Violence N Depression/ depression N Heart Disease N Pre-Eclampsia N Hypertension N Osteoporosis N Thrombophilias N Gynecological History Statement/Question Response Date of Last Colonoscopy 08/09/2015 Date of Last Mammogram 02/04/2021 Most Recent Bone Density Sexually Active? Y N STIs/STDs N Age of first menstrual cycle 14 Date of Last Pap Smear 06/26/2024 Sexual Problems? N Current Control Method Hysterectom y Age at First Child 28 N Obstetrics History GPAL:G 3 P 3 0 0 3 Type Value Full Term 3 Living 3 Total 3 Past Encounters Encounter ID Performer Location Encounter Start Date Encounter Closed Date Diagnosis/Indication Diagnosis SNOMED-CT Code Diagnosis ICD10 Code Diagnosis Note [id number] MD [facility] [address] [address] 03/07/2021 12:12:28 03/07/2021 13:31:25 Mammography assessment (Category 4) - Suspicious abnormality, biopsy should be considered 814441125 R92.2 Mammography abnormal 168 331100 R92.8 [id number] MD [facility] [address] [address] 01/07/2022 14:17:06 01/13/2022 15:26:17 Gynecologic examination 63280261 Z01.419 History of malignant neoplasm of breast 213662306 Z85.3 [id number] OMAYRA Garcia [facility] [address] [address] 06/26/2024 11:52:26 06/26/2024 13:04:05 Gynecologic examination 73818952 Z01.419 WWEno pap neededmamm ogram - follows with breast specialist yearlydexa - orderedcol onoscopy - has scheduledU TD with PCP Do monthly self breast exams. It is advised to get annual flu shot in the fall and she could obtain at [facility] or [facility] care clinic. If you haven't received the Tdap vaccine in the last 10 years you should obtain one as well. Have mammogram yearly, bone density every 2-3 years and stay up to date on colon cancer screening. Engage in regular exercise. Avoid tobacco and illicit drugs. This lifestyle behavior pattern will lead to less health conditions and longer life span. If BMI greater than 25 dietary consult advised. Questions have been answered. Screening for osteoporosis 461335382 Z13.820 Health Concerns Section Related Observation LastModified by Organization Detai ls LastModified Time None Recorded Concern Status LastModified by Organization Details LastModified Time None Recorded Advance Directives Directive N: Payers Encounter Date Sequence Insurance Name Policy Number Policy Mercedes Covered Member ID Mercedes Member ID Guarantor Name 03/07/2021 1 [place] Blanca Xieer [id number] Blanca Steiner 03/07/2021 2 [employer] (MEDICARE SUPPLEMENT) Blanca Monterroso Jatin [id number] Blanca Xieer 01/07/2022 1 [place] Blanca Xeier [id number] Blanca Xieer 01/07/2022 2 [employer] (MEDICARE SUPPLEMENT) Blanca Xieer [id number] Blanca Xieer 06/26/2024 1 [employer] (MEDICARE REPLACEMENT/ ADVANTAGE - HMO) [id number] Blanca Steiner [id number] Blanca Steiner Notes Date Note Type Note Provider Name and Address Organization Details Recorded Time 1 text/html Patient is a 65yo who presents for reestablishing care and referral to breast surgery for biopsies.. She is sexually active. Menses: gone. Had breast cancer in right breast in 2006, right lumpectomy. Also has had hysterectomy. Concerns: last WWE: 2015 Depression:denies, but is very worried about mammo results Domestic violence:denies Mimi Cabrera MD [address], [place], [address], [facility] 03/07/2021 12:46:53 2 text/html Patient is a 66yo who presents for an annual exam. had breast cancer 2006 and a scare with her mammo last year, but it ended up fat necrosis. Does mammos at [facility] now and has order. s/p hyst and ovaries out. mammo-2020 colonoscopy-6 years, normal dexa-unsure sexually active-y seatbelts-y exercise-y depression-denies domestic violence-denies tobacco-n concerns- Mimi Cabrera MD [address], [place], [address], [facility] 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 Post-MenopausalReported bypatient.Menopausal Symptoms:no menopausal symptoms; normal vaginal lubrication Vaginal Bleeding:history of menopause having occurred; no history of post menopausal bleeding Urinary Symptoms:no hematuria; no incontinence; no nocturia; no urinary frequency Vulva:no genital lesion; no vulvar atrophy Vagina:normal vaginal discharge; no vaginal atrophy Breast:no breast lump; no nipple discharge; no breast pain Sexual Complaints:no sexual complaints Psychological Symptoms:no depression; no anxiety Preventive Measures:encourage regular mammograms starting age 40; encourage self breast examination; encourage regular exercise; encourage no tobacco useNotes:68yo WWEhx of hyst/BSO for AUB around 15yrs ago, no h/o abnormal papsh/o right breast cancer in 1976, follows with breast specialistdexa last 2021 - osteopeniacolonoscopy has scheduled next monthon venlafaxine for hot flashes OMAYRA Garcia [address], [place], [address], [place] [facility] 06/26/2024 13:01:05 OBGyn Episode Ob Episode Information Episode Created Date Number of Fetuses Patient Bloodtype Patient rh Status Prepregnancy Weight lbs Domestic Partner Domestic Partner Phone Father Name Addiction Specialist Status 03/07/20 21 1 CLOSED Fetus Data First Name Last Name Admitted to NICU Weight (g) Sex Living Outcome Pediatric Complications Fetus ID Race Codes Race Delivery Type 4592.61 9 M Full Term [id number] Vaginal Delivery Herberth Calculation Initial Herberth Date Initial Exam Date Initial Exam Provider Initial Ultrasound Date Last Menstrual Period Date Ultra Sound Weeks Gestation 0 Eighteen To Twenty Week Herberth Update Ultra Sound Date Fundal Height At Umbil Quickening Date Ultra Sound Latest Weeks Gestation Final Herberth Confirmed By Final Herberth Confirmed Date Final Herberth Date Ultra Sound Latest Days Gestation 0 0 Menstrual History Last Menstrual Date Menses Monthly On Bcp Conception Prior Menses Frequency Hcg Plus Date Menarche Onset Age Delivery Information Delivery Date Delivery Type Labor Anesthesia Weeks Gestation Incision Type Labor Labor Length Hrs Delivered By Post Complications Tubal Sterilization Discharge Date Comments 4 40 Discharge Information Feeding Method Contraceptive Method Maternal HG B and HCT Levels Ob Episode Information Episode Created Date Number of Fetuses Patient Bloodtype Patient rh Status Prepregnancy Weight lbs Domestic Partner Domestic Partner Phone Father Name Addiction Specialist Status 03/07/20 21 1 CLOSED Fetus Data First Name Last Name Admitted to NICU Weight (g) Sex Living Outcome Pediatric Complications Fetus ID Race Codes Race Delivery Type 3656.85 8704 F Full Term [id number] Vaginal Delivery Herberth Calculation Initial Herberth Date Initial Exam Date Initial Exam Provider Initial Ultrasound Date Last Menstrual Period Date Ultra Sound Weeks Gestation 0 Eighteen To Twenty Week Herberth Update Ultra Sound Date Fundal Height At Umbil Quickening Date Ultra Sound Latest Weeks Gestation Final Herberth Confirmed By Final Herberth Confirmed Date Final Herberth Date Ultra Sound Latest Days Gestation 0 0 Menstrual History Last Menstrual Date Menses Monthly On Bcp Conception Prior Menses Frequency Hcg Plus Date Menarche Onset Age Delivery Information Delivery Date Delivery Type Labor Anesthesia Weeks Gestation Incision Type Labor Labor Length Hrs Delivered By Post Complications Tubal Sterilization Discharge Date Comments 6 40 Discharge Information Feeding Method Contraceptive Method Maternal HG B and HCT Levels Ob Episode Information Episode Created Date Number of Fetuses Patient Bloodtype Patient rh Status Prepregnancy Weight lbs Domestic Partner Domestic Partner Phone Father Name Addiction Specialist Status 03/07/20 21 1 CLOSED Fetus Data First Name Last Name Admitted to NICU Weight (g) Sex Living Outcome Pediatric Complications Fetus ID Race Codes Race Delivery Type 3855.53 2 F Full Term [id number] Vaginal Delivery Herberth Calculation Initial Herberth Date Initial Exam Date Initial Exam Provider Initial Ultrasound Date Last Menstrual Period Date Ultra Sound Weeks Gestation 0 Eighteen To Twenty Week Herberth Update Ultra Sound Date Fundal Height At Umbil Quickening Date Ultra Sound Latest Weeks Gestation Final Herberth Confirmed By Final Herberth Confirmed Date Final Herberth Date Ultra Sound Latest Days Gestation 0 0 Menstrual History Last Menstrual Date Menses Monthly On Bcp Conception Prior Menses Frequency Hcg Plus Date Menarche Onset Age Delivery Information Delivery Date Delivery Type Labor Anesthesia Weeks Gestation Incision Type Labor Labor Length Hrs Delivered By Post Complications Tubal Sterilization Discharge Date Comments 0 40 Discharge Information Feeding Method Contraceptive Method Maternal HG B and HCT Levels
--- OUTSIDE RECORDS SUMMARY | 2024-11-29 14:58 | XMS_ITS | Encounter Summary ---
Author Organization [facility] Healthcare Address [address] [place] [address] Care Team Providers Care Master Glazier Name Role Phone Phill Platt MD Primary Care Provider Mimi Cabrera MD Unavailable [phone] Kirsty Mo FOSTER CARE SOCIAL WORKER Unavailable [phone] Malgorzata Smiley FOSTER CARE SOCIAL WORKER Unavailable [phone] Reason for Visit * Reason Onset Date Comments Colonoscopy Reschedule 11/28/2024 Encounter Details Date Type Department Care Team (Late st Contact Info) Description 11/28/2024 Telephone [facility] Gastroenterology at [address] [place] [address] Navid Fitzpatrick Colonoscopy Reschedule Social History Tobacco Use Types Packs/Day Years Used Date Smoking Tobacco: Never Smokeless Tobacco: Never Alcohol Use Standard Drinks/Week Comments No 0 [...] on file Legal Sex Female 2:51 PM PIPER INSTALLER Gender Identity Not on file Sexual Orientation Not on file documented as of this encounter Miscellaneous Notes * Addendum Note - Navid Fitzpatrick - 11/28/2024 2:47 PM CDTAddended by: NAVID FITZPATRICK on: 11/28/2024 02:47 PM Modules accepted: Orders * Telephone Encounter - Navid Fitzpatrick - 11/28/2024 2:41 PM CDT Patient returned call and rescheduled her colonoscopy for 07/18/25 at 10:00 am. Prep instructions were updated then sent via PictureMenu. A copy of the prep instructions will be mailed 6 weeks prior to the procedure. Case was will be over a year old by the time of patient's appointment so the old case was cancelled and a new case was created. * Telephone Encounter - Navid Fitzpatrick - 11/28/2024 2:30 PM CDT Received a message from Enriqueta in the GI Lab stating patient was cancelling her 03/13/25 colonoscopy and would like the office to call patient to reschedule. Called and lvm for patient letting her know the hospital had cancelled the procedure on their end, but she would need to call the office if she would like to reschedule. documented in this encounter Plan of Treatment Upcoming Encounters Date Type Department Care Team (Late st Contact Info) Description 07/18/2025 10:00 AM PIPER INSTALLER Hospital Encounter [address] [address] James Ley, [address] [place] [address] [address] 07/18/2025 10:00 AM PIPER INSTALLER - 07/18/2025 10:30 AM PIPER INSTALLER Surgery [address] [address] James Ley, DO [address] [facility] [address] [place] [address] COLONOSCOPY Scheduled Procedures Name Priority Associated Diagnoses Date/Ti me COLONOSCOPY Screening for colon cancer 07/18/2025 10:00 AM PIPER INSTALLER documented as of this encounter Visit Diagnoses Diagnosis Screening for colon cancer- Primary Special screening for malignant neoplasms, colon Screening for colon cancer- Primary Special screening for malignant neoplasms, colon Screening for colon cancer Special screening for malignant neoplasms, colon documented in this encounter Orders Case Request Count Last Ordered Date First Orde red Date CASE REQUEST GI 1 11/28/2024 documented in this encounter Care Teams Master Glazier Relationship Specialty Start Date End Date Phill Platt MD PCP - General 01/16/13 Mimi Cabrera MD Referring Physician Obstetrics and Gynecology 03/07/21 Kirsty Mo NP Nurse Practitioner Nurse Practitioner 03/20/21 Malgorzata Smiley, ILAN [address] [place] [address] Obstetrics and Gynecology 05/02/24 documented as of this encounter
--- OUTSIDE RECORDS SUMMARY | 2024-11-29 14:58 | XMS_ITS | Clinical Summary ---
Author Organization [facility] Address [address] [place] [address] Phone Care Team Providers Care Painting Trades Worker Name Role Phone Unavailable Primary Care Provider Unavailabl e Allergies Active Allergy Reactions Criticality Noted Date Comments Penicillins Rash Low 08/15/2009 Medications ATENOLOL PO Take by mouth. Active SIMVASTATIN PO Take by mouth. Active Active Problems Patient Care Coordination No te Formatting of this note migh t be different from the original. Primary Care: No primary provider on file. Referring Provider: Parul Hernandez MD [address] [place] [address] Other: Problem Noted Date Diagnosed Date Hypercholesterolemia 01/28/2011 MVP (mitral valve prolapse) 01/28/2011 Osteopenia 01/28/2011 Malignant neoplasm of breast (female), unspecifi ed site Overview (06/06/2011): rt breast DCIS STAGE 0 BCT October 2006 Adjuvant RT Family History Medical History Relation Name Comments Other Brother diabetes Other Father diabetes Other Maternal Grandfather diabete s Breast Cancer Neg Hx Relation Name Status Comments Brother Father Maternal Grandfather Social History Tobacco Use Types Packs/Day Years Used Date Smoking Tobacco: Never Smokeless Tobacco: Never Alcohol Use Standard Drinks/Week Comments No 0 (1 standard drink = 0.6 oz pur e alcohol) Comments No Sex and Gender Information Value Date Recorded Sex Assigned at Not on file Legal Sex Female 5:42 AM EVALUATION ADVISOR Gender Identity Not on file Sexual Orientation Not on file Last Filed Vital Signs Vital Sign Reading Time Taken Comments Blood Pressure 98/47 06/15/2012 1:52 PM EVALUATION ADVISOR Pulse 76 06/15/2012 1:52 PM EVALUATION ADVISOR Temperature - - Respiratory Rate - - Oxygen Saturation - - Inhaled Oxygen Concentration - - Weight 75.8 kg (167 lb) 06/15/2012 1:52 PM EVALUATION ADVISOR Height 163.8 cm (5' 4.5 ) 06/15/2012 1:52 PM EVALUATION ADVISOR Body Mass Index 28.22 06/15/2012 1:52 PM EVALUATION ADVISOR Plan of Treatment Health Maintenance Due Date Last Done Comments DTAP/TDAP/TD VACCINES (1 - Tdap) 1973 COLORECTAL SCREENING 1999 Colorectal Cancer Screening 1999 FIT-DNA Q 3 years 1999 FIT/FOBT Q 1 year 1999 Flex Sig/CT Colonography Q 5 years 1999 PNEUMOCOCCAL VACCINE 50+ YEA RS (1 of 1 - PCV) 2004 ZOSTER VACCINE (1 of 2) 2004 BREAST CANCER SCREENING 05/28/2012 05/28/20 11, 01/01/2011, 05/11/2009 OSTEOPOROSIS SCREENING 2019 INFLUENZA VACCINE (#1) 2024 RSV VACCINE (60+ or ) (1 - 1-dose 75+ series) 2029 Procedures Procedure Name Priority Date/Time Associated Diagnosis Comments MAMMO SCREEN BILAT W OR WO CAD Routine 05/28/2011 from Last 3 Months or Most Recently Relevant to Health Maintenance Results * MAMMO DIGITAL SCREEN BILAT (05/28/2011) Anatomical Region Laterality Modality Breast Bilateral Other Madelin Ratliff MD MAMMO ORDERABLES Final Result from Last 3 Months or Most Recently Relevant to [place] [address] [place] [address] [employer] O OPEN ACCESS
--- OUTSIDE RECORDS SUMMARY | 2024-11-29 14:58 | XMS_ITS | Clinical Summary ---
Author Organization [facility] Address [address] [place] [address] Care Team Providers Care Manager Land Name Role Phone Phill Platt MD Primary Care Provider Mimi Cabrera MD Unavailable [phone] Kirsty Mo NP Unavailable [phone] Malgorzata Smiley NP Unavailable [phone] Allergies Active Allergy Reactions Criticality Noted Date Comments Penicillins Hives,Rash Reaction: Hives, , Reaction: Hives, Skin Rash, Medications blood-glucose meter kit 1 each daily Use to check blood glucose daily Dx E11.69 1 kit 2 Active blood glucose diagnostic (glucose blood) strip USE TO TEST BLOOD SUGAR ONCE DAILY OR DIRECTED 100 each 11 2 Active lancets misc Check blood sugar once daily or as [...] 10/12/2019 Assessment & Plan (06/15/2019 11:26 AM TRUST ADMINISTRATIVE ASSISTANT): Initiating Z-Geraldo given suspicion of secondary bacterial [...] 0 10/14/2020 Overview (11/12/2016): Glucose intolerance (pre-diabetes) Encounters Date Type Department Care Team Description 11/28/2024 Telephone [facility] Gastroenterology at [address] [place] [address] Fara Fitzpatrick Colonoscopy Reschedule from Last 3 Months Immunizations Immunization Administration Dates Next Due Influenza, [...] 10/12/2019 Pneumococcal Polysaccharide PPV23 10/15/2021 Tdap 10/15/2015 Surgical History Surgery Date Site/Laterality Comments CHOLECYSTECTOMY Cholecystectomy HYSTERECTOMY Hysterectomy BREAST BIOPSY 03/24/2021 Right BREAST BIOPSY 05/22/2024 Right COLONOSCOPY BREAST LUMPECTOMY Medical History Medical History Date Comments Breast cancer (HCC) Lumpectomy/R TX Covid-19 DM (diabetes mellitus) (HCC) HTN (hypertension) HLD (hyperlipidemia) Depression Family History Medical History Relation Name Comments Diabetes Brother Diabetes mellit us; Cirrhosis Father Cirrhosis; Diabetes type I Father Diabetes -Ty pe I; Other Father ; Diabetes type I Maternal Grandfather Diab etes -Type I; Depression Mother Depression; Hypertension Mother Hypertension; Transient ischemic attack Mother Tr ansient ischemic attack; Breast cancer Mother's Sister Diabetes Other 1 Family history of Diabetes mellitus; Hypertension Other 2 Family history of Hypertension; Relation Name Status Comments Brother Father Maternal Grandfather Mother Mother's Sister Other 1 Other 2 Social History Tobacco Use Types Packs/Day Years [...] on file Legal Sex Female 2:51 PM TRUST ADMINISTRATIVE ASSISTANT Gender Identity Not on file Sexual Orientation Not on file Obstetrics History Last Filed Vital Signs Vital Sign Reading [...] st Contact Info) Description 07/18/2025 10:00 AM TRUST ADMINISTRATIVE ASSISTANT Hospital Encounter [facility] [address] [place] [address] James Ley, DO [address] [facility] [place] [address] 07/18/2025 10:00 AM TRUST ADMINISTRATIVE ASSISTANT - 07/18/2025 10:30 AM TRUST ADMINISTRATIVE ASSISTANT Surgery [facility] [address] [place] [address] James Ley, DO [address] [facility] [place] [place] [address] COLONOSCOPY Scheduled Procedures Name Priority Associated Diagnoses Date/Ti me COLONOSCOPY Screening for colon cancer 07/18/2025 10:00 AM TRUST ADMINISTRATIVE ASSISTANT Health Maintenance Due Date Last Done Comments Hepatitis B Screening 1972 Zoster Vaccine (1 of 2) 2004 Colon Cancer Screening-Colonoscopy 03/02/2023 03/02/2013, 03/02/2013 Covid-19 Vaccine (2023-09 5 season) 2024 03/12/2023, 05/19/2022, 11/27/2021, Additional history exists Osteoporosis Screening-Bone Density Scan 04/30/2024 04/30/2022, 03/07/2012 Well Visit 65+ 11/23/2024 11/24/2023, 04/10, 10/22/2022, Additional history exists Dilated Eye Exam 11/24/2024 11/25/2023, 06/2023, 01/11/2020 Breast Cancer Screening-Mammogram 05/15/2025 05/15/2024, 02/17/2023, 02/06/2022, Additional history exists Hemoglobin A1C 05/22/2025 11/20/2024, 03/2024, 11/17/2023, Additional history exists Depression Screening 05/23/2025 05/23/2024, 11/24/2023, 04/28/2023, Additional history exists Fall Risk Assessment 05/23/2025 05/23/2024, 11/24/2023, 04/28/2023, Additional history exists Foot Exam 05/23/2025 05/23/2024, 11/07, 10/22/2022, Additional history exists DTaP/Tdap/Td Vaccine (2 - Td or Tdap) 10/14/2025 10/15/2015 Albumin Creatinine Ratio, Urine 11/20/2025 11/20/2024, 11/17/2023, 10/14/2022, Additional history exists Lipid Panel 11/20/2025 11/20/2024, 03/2024, 11/17/2023, Additional history exists eGFR 11/20/2025 11/20/2024, 03/2024, 11/17/2023, Additional history exists Colon Cancer Screening-CT Colonography Discontinued 03/02/2013, 03/02/2013 Colon Cancer Screening-DNA Stool Discontinued 03/02/20 13, 03/02/2013 Colon Cancer Screening-FIT Discontinued 03/02/2013, Colon Cancer Screening-Sigmoidoscopy Discontinued 03/02/2013, 03/02/2013 Hepatitis C Screening Completed 09/27/2017, 018 Pneumococcal vaccine 65+ Completed 10/15/2021, 12/2019 Influenza Vaccine Completed 05/23/2024, , 08/21/2021, Additional history exists Medical Devices Implanted Type Area Pharmacy Specialist Device Identifier Shelf Expiration Date Model / Serial / Lot [employer] Marker Image Hydromark Plus T5 Titanium 15ga Radiological Implant Sterile 4009-09-23-T5 - [id number] Implanted:Qty: 1 on 05/22/2024 at [facility] [employer] [id number] 4009-09-23 -T5 / / [id number] [place] [facility] Marker Breast Ring Shape Radiopaque Nitinol Ultracor Twirl [id number] - [id number] Implanted:Qty: 1 on 05/22/2024 at [facility] [id number] / / Procedures Procedure Name Priority [...] QN, PCR (REFL) Routine 09/27/2017 9:24 AM TRUST ADMINISTRATIVE ASSISTANT Need for hepatitis C screening test COLONOSCOPY [...] 11/21/2024 7:15 AM CDT FASTING:YES FASTING: YES Phill Platt MD LAB URINE ORDERABLES Fi nal Result Performing Organization Address City/[facility]/ZIP Co de Phone Number [facility] [address] [address] [place] [address] * (ABNORMAL) Hemoglobin A1c (11/20/2024 6:52 AM [...] 11/21/2024 7:15 AM CDT FASTING:YES FASTING: YES Phill Platt MD LAB BLOOD ORDERABLES Fi nal Result Performing Organization Address City/[facility] Co de Phone Number [facility] [address] [place] [address] * Lipid panel (11/20/2024 6:52 AM CDT) [...] LDL-C. Suresh AVALOS et al. BHUMIKA. 2013;310(19): 8180-0437 (http://education.Banyan/faq/BSQ431) Chol/HDL ratio 3.2 <5.0 (calc) [facility] [...] 11/21/2024 7:15 AM CDT FASTING:YES FASTING: YES Phill Platt MD LAB BLOOD ORDERABLES Fi nal Result [facility] [address] [place] [address] * (ABNORMAL) Comprehensive metabolic panel (11/20/2024 6:52 AM CDT) [facility] Glucose 163(H) 65 - 99 mg/dL [facility] BUN/creat ratio SEE NOTE: 6 - 22 (calc) [facility] Comment: Not Reported: [...] BLOOD ORDERABLES Fi nal Result [facility] [address] [place] [address] * Diagnostic Mammogram Bilateral W Khang (05/15/2024 [...] has been scheduled to return to the [facility] for biopsy on 05/22/2024 at [...] has been scheduled to return to the [facility] for biopsy on 05/22/2024 at 10:30 AM. This facility will contact the referring clinician's office for an order. Electronically signed by: Alecia Black M.D. Result [facility] Malgorzata Smiley NP IMG MAMMO PROCEDURES Fi nal Result * Diabetic Eye Exam (11/25/2023) Generic External Data Provider HEALTH MAINTENANC E Final Result * Dexa Axial Skeleton Bone Density 1 or 2 Site (04/30/2022) Anatomical Region Laterality Modality Body N/A Radiographic Crista ging Historical Provider IMG DXA PROCEDURES Final Result * DIABETES FOOT EXAM (10/12/2019) Pathologist [facility] Diabetic Foot Exam Normal Result [facility] Historical Provider HEALTH MAINTENANCE Final Result * HEPATITIS C AB W/REFL TO HCV RNA, QN, PCR (REFL) (09/27/2017 9:24 AM TRUST ADMINISTRATIVE ASSISTANT) Hep C Ab NON-REACTI VE NON-REACTI VE [facility] SIGNAL TO CUT-OFF 0.02 <1.00 [facility] [place] Blood specimen (specimen) 09/27/2017 9:24 AM TRUST ADMINISTRATIVE ASSISTANT 09/28/2017 5:39 AM TRUST ADMINISTRATIVE ASSISTANT Narrative Resulting Agency Comment Performing Organization Information: Site ID: [id number] Name: [facility] Address: [address] [place] [address] [place] [address] Director: Mac Gipson D.O., MPH Phill Platt MD LAB BLOOD ORDERABLES Fi nal Result [facility] [place] * COLONOSCOPY (03/02/2013) Colonoscopy Normal Historical Provider HEALTH MAINTENANCE Final Result from Last 3 Months or Most Recently Relevant to Health Maintenance Insurance [facility] [employer] [place] [address] [place] [id number] Care Teams Manager Land Relationship Specialty Start Date End Date Phill Platt MD PCP - General 01/16/13 Mimi Cabrera MD Referring Physician Obstetrics and Gynecology 03/07/21 Kirsty Mo NP Nurse Practitioner Nurse Practitioner 03/20/21 Malgorzata Smiley NP [address] [place] [address] Obstetrics and Gynecology 05/02/24
== END 2024-11-29 13:18 | disposition home or self-care (01) ==
LOC: ANHIMG 13:19
PROVIDERS: PCP Internal Medicine; Visit Provider Nurse Practitioner
DX: Z13.820 Encounter for screening for osteoporosis (principal); M85.88 Other specified disorders of bone density and structure, other site; M85.852 Other specified disorders of bone density and structure, left thigh; M85.851 Other specified disorders of bone density and structure, right thigh
CPT/HCPCS: 77080